=== PATIENT | female | born 1940 | race Caucasian/White ===

== ENCOUNTER → 2022-03-15 14:59 | Outpatient (BNVA) | payer MEDICARE, SELFPAY | PROVIDERS: PCP Internal Medicine; Visit Provider Internal Medicine | DX: J44.1 Chronic obstructive pulmonary disease with (acute) exacerbation (principal); Z79.899 Other long term (current) drug therapy | CPT/HCPCS: 99212 ==

== ENCOUNTER → 2023-01-28 10:31 | Outpatient (BNVA) | payer MEDICARE, SELFPAY | PROVIDERS: PCP Internal Medicine; Visit Provider Internal Medicine | DX: J44.9 Chronic obstructive pulmonary disease, unspecified (principal); J30.9 Allergic rhinitis, unspecified | CPT/HCPCS: 99212 ==

== ENCOUNTER 2023-07-30 10:54 | Outpatient (REF) | payer MEDICARE, SELFPAY | END 2023-07-30 10:55 | disposition home or self-care (01) | LOC: HO.HOSX 10:54 | PROVIDERS: Visit Provider Orthopaedic Surgery | DX: Z13.89 Encounter for screening for other disorder (principal) ==

== ENCOUNTER 2023-08-08 12:08 | Outpatient (REF) | payer MEDICARE, SELFPAY ==
--- NOTE | ~2023-08-08 | XR_ITS ---
EXAMINATION: XR KNEE, LEFT CLINICAL INFORMATION: Pain. COMPARISON: None available. TECHNIQUE: Frontal, lateral and axial views of the left knee are submitted. FINDINGS: Bony alignment and mineralization are normal. There is moderately severe asymmetric narrowing of the medial joint space compartment, and the lateral and patellofemoral joint space compartments are well-maintained. There is a secondary mild varus configuration. There is peripheral osteophyte formation of the medial and patellofemoral compartments. There is chondrocalcinosis. No fracture or dislocation is seen. There is a small joint effusion. No foreign body is seen. There is mild femoral and infrapopliteal atherosclerotic calcification. XR/XR knee LT 3V IMPRESSION: 1. There is tricompartment osteoarthritic change of the left knee, most pronounced of the medial joint space compartment, where it is moderately severe. 2. There is a secondary mild varus configuration. 3. There is chondrocalcinosis, which can be associated with CPPD. 4. There is a small left knee joint effusion.
== END 2023-08-08 12:09 | disposition home or self-care (01) ==
LOC: HO.HOSX 12:08
PROVIDERS: Visit Provider Orthopaedic Surgery
DX: M17.12 Unilateral primary osteoarthritis, left knee (principal); M25.561 Pain in right knee; Z79.899 Other long term (current) drug therapy
CPT/HCPCS: 20610; 73562; 99202; J3301

== ENCOUNTER 2023-08-08 14:57 | Outpatient (AMB) | payer MEDICARE, SELFPAY ==
--- NOTE | 2023-08-08 15:08 | MHC.OFFVIS ---
Intake Intake Visit Reasons: [employer]- Left knee pain Intake Note: Pt presents to the office today for a new patient visit for left knee pain. Pt is a previous pt of Dr. Parker. Pt state her knee pain started years ago. Pt states she has had cortisone injections in the past. Pt states she has had a cortisone injection with the past year.Pt states the injections help. She states the pain is back after falling about a month ago. pt states she had arthroscopic surgery on her left knee about 20 years ago. Pt denies any previous PT on her left knee. The patient has tried Tylenol and anti-inflammatory medicines which gave her minimal relief. She wishes to hold off on surgery for as long as possible. Allergies iodine Allergy (Severe, Verified 08/08/23 15:16) Anaphylaxis carli dressing Allergy (Severe, Uncoded 08/08/23 15:16) Anaphylaxis shellfish Allergy (Severe, Uncoded 08/08/23 15:16) Anaphylaxis Medication List - Last Reconciled 08/09/23 by Robert Parker MD albuterol sulfate 90 mcg/actuation 2 puffs inhalation Q4-6H PRN 30 days aspirin 81 mg PO DAILY fluticasone furoate-vilanterol 200-25 mcg/dose (Breo Ellipta) 1 inh inhalation DAILY mecobalamin (vitamin B12) 1,000 mcg sublingual BEDTIME metoprolol tartrate 25 mg PO DAILY omeprazole 40 mg PO DAILY PFSH Medical History (Updated 08/09/23 @ 12:10 by Robert Parker MD) Allergic rhinitis Asthma-COPD overlap syndrome Surgical History (Updated 08/08/23 @ 15:31 by Caitlyn Thornton MA) History of right hip replacement History of left hip replacement Hx of fusion of cervical spine Hx of cataract surgery History of back surgery Hx of arthroscopy of left knee History of carpal tunnel surgery Hx of hysterectomy Social History Household Members: Children Housing: House Alcohol intake: current Alcohol intake frequency: holidays/special occasions only Patient Tobacco Use Status: Former Tobacco user Current occupational status: retired Current occupation: right hand dominant Physical Exam Const Other: Well-nourished well-developed very friendly female awake alert and oriented x3 in no acute distress Extrem Other: Bilateral lower extremity examination shows good capillary refill, no skin lesions noted, normal sensation light touch Left knee examination shows palpable crepitus with range of motion, pain with range of motion, range of motion from -3 degrees to 115 degrees, no instability Office Procedures Joint Injection/Drain Joint Injection/Drain Primary Site: left knee Prep: site was prepped using aseptic technique Injected: 40 mg of, Kenalog and 1% plain lidocaine Procedure: The patient tolerated the procedure well Coding - Large joint Procedure code (CPT) selection complete Results Reviewed Results Reviewed: 08/08/23 15:38 Lidocaine HCl 2 % MPF [Xylocaine 2 % MPF] 5 ml .ROUTE .STK-MED ONE 08/08/23 15:39 Triamcinolone Acetonide [Kenalog-40] 40 mg .ROUTE .STK-MED ONE X-rays of the patient's left knee show severe joint space narrowing, subchondral sclerosis, no acute bony abnormalities Assessment & Plan Assessment & Plan (1) Arthritis of left knee: Code(s): M17.12 - Unilateral primary osteoarthritis, left knee Plan Ms. Sadler presents with left knee pain due to degenerative joint disease. I had a lengthy discussion with the patient regarding the treatment options. She wishes to hold off on surgery for as long as possible. I agree with this plan. The risks and benefits of a left knee cortisone injection were discussed at length with the patient. The patient wished to proceed. She tolerated the injection well. She will continue with her activity modifications. She will follow up with me on an as-needed basis should her symptoms not plateau at an unacceptable level over the next few months. Feel free to call me at any time should questions regarding her orthopedic management arise. I spent 22 minutes in reviewing the patient's records and imaging studies, seeing the patient and documenting in the medical record. Orders: Orders AMB Joint Injection/Aspiration 08/08/23 M17.12 - Unilateral primary osteoarthritis, left knee XR knee RT 3V 07/30/23 M25.561 - Pain in right knee Coding Level of Care Code Est Pt Level 2 (01276) Diagnoses Arthritis of left knee M17.12 CPT Codes Coding - Large joint: 83934 - Large joint ([id number])
== END 2023-08-08 16:04 | disposition home or self-care (01) ==
PROVIDERS: PCP Internal Medicine; Visit Provider Orthopaedic Surgery
DX: M17.12 Unilateral primary osteoarthritis, left knee (principal)
CPT/HCPCS: 20610; 99204

== ENCOUNTER 2024-01-23 10:36 | Outpatient (AMB) | payer MEDICARE, SELFPAY ==
[2024-01-23 10:40] VITALS: BMI 30.1
--- NOTE | 2024-01-23 10:40 | A.OFFVIS_ITS ---
Vital Signs 01/23/24 10:40 Height 5 ft Weight 154 lb BMI 30.1 Intake Visit Reasons: Left knee pain Intake Note: Kavitha is a 83 year old female who presents for a follow up of Left knee pain. Her last injection was the Left knee on 08/08/2023 and it gave her good relief. Her left knee pain has returned. She describes her pain as sharp in nature. She has done physical therapy exercises which aggravated her pain. She has also tried Tylenol and anti-inflammatory medicines which gave her minimal relief. She would like to hold off on surgery for as long as possible. Allergies iodine Allergy (Severe, Verified 01/23/24 11:16) Anaphylaxis carli dressing Allergy (Severe, Uncoded 08/08/23 15:16) Anaphylaxis shellfish Allergy (Severe, Uncoded 08/08/23 15:16) Anaphylaxis Medication List - Last Reconciled 01/23/24 by Robert Parker MD albuterol sulfate 90 mcg/actuation 2 puffs inhalation Q4-6H PRN 30 days aspirin 81 mg PO DAILY fluticasone furoate-vilanterol 200-25 mcg/dose (Breo Ellipta) 1 inh inhalation DAILY 30 days mecobalamin (vitamin B12) 1,000 mcg sublingual BEDTIME metoprolol tartrate 25 mg PO DAILY omeprazole 40 mg PO DAILY PFSH Medical History Allergic rhinitis Asthma-COPD overlap syndrome Surgical History History of right hip replacement History of left hip replacement Hx of fusion of cervical spine Hx of cataract surgery History of back surgery Hx of arthroscopy of left knee History of carpal tunnel surgery Hx of hysterectomy Social History Household Members: Children Housing: House Alcohol intake: current Alcohol intake frequency: holidays/special occasions only Patient Tobacco Use Status: Former Tobacco user Current occupational status: retired Current occupation: right hand dominant Physical Exam Vital Signs: BMI result Body Mass Index 30.1 Const Other: Well-nourished well-developed very friendly female awake alert and oriented x3 in no acute distress Extrem Other: Bilateral lower extremity examination shows good capillary refill, no skin lesions noted, normal sensation light touch Left knee examination shows a minimal effusion, palpable crepitus with range of motion, pain with range of motion, range of motion from -3 degrees to 115 degrees, no instability Office Procedures Joint Injection/Drain Joint Injection/Drain Primary Site: left knee Prep: site was prepped using aseptic technique Injected: 40 mg of, DepoMedrol and 1% plain lidocaine Procedure: The patient tolerated the procedure well Coding - Large joint Procedure code (CPT) selection complete Results Reviewed Results Reviewed: X-rays of the patient's left knee taken today show severe degenerative joint disease, subchondral sclerosis, joint space narrowing, no acute bony abnormalities Assessment & Plan Assessment & Plan (1) Left knee pain: Code(s): M25.562 - Pain in left knee (2) Arthritis of left knee: Code(s): M17.12 - Unilateral primary osteoarthritis, left knee Category: Medical Plan Ms. Sadler presents with left knee pain due to degenerative joint disease. I had a lengthy discussion with the patient regarding the treatment options. She wishes to hold off on total knee replacement surgery for as long as possible. I agree with this plan. The risks and benefits of a left knee cortisone injection were discussed at length with the patient. The patient wished to proceed. She tolerated the injection well. She will continue with her home exercise program. She will follow up with me on an as-needed basis should her symptoms not plateau at an unacceptable level over the next few months. Feel free to call me at any time should questions regarding her orthopedic management arise. I spent 22 minutes in reviewing the patient's records and imaging studies, seeing the patient and documenting in the medical record. Orders: Orders AMB Joint Injection/Aspiration Today M17.12 - Unilateral primary osteoarthriti s, left knee Coding Level of Care Code Est Pt Level 2 (01921) Diagnoses Left knee pain M25.562 Arthritis of left knee M17.12 CPT Codes Coding - Large joint: 60826 - Large joint ([id number])
== END 2024-01-23 11:47 | disposition home or self-care (01) ==
PROVIDERS: PCP Internal Medicine; Visit Provider Orthopaedic Surgery
DX: M25.562 Pain in left knee (principal); M17.12 Unilateral primary osteoarthritis, left knee
CPT/HCPCS: 20610; 99213

== ENCOUNTER 2024-01-23 10:36 | Outpatient (REF) | payer MEDICARE, SELFPAY ==
--- NOTE | ~2024-01-23 | XR_ITS ---
EXAMINATION: XR KNEE, LEFT CLINICAL INFORMATION: Pain in knee. COMPARISON: None available. TECHNIQUE: AP standing, sunrise and lateral views of the left knee. FINDINGS: LEFT KNEE: The bones are diffusely demineralized. No significant joint effusion. [id number]-rlnppf narrowing of the medial compartment. Chondrocalcinosis in the lateral compartment. Lateral compartment preserved. Small tricompartmental osteophytes. XR/XR knee LT 3V IMPRESSION: Tricompartmental degenerative changes most advanced in the medial compartment.
== END 2024-01-23 10:37 | disposition home or self-care (01) ==
LOC: HO.HOSX 10:36
PROVIDERS: PCP Internal Medicine; Visit Provider Orthopaedic Surgery
DX: M17.12 Unilateral primary osteoarthritis, left knee (principal)
CPT/HCPCS: 20610; 73562; 99212; J1010

== ENCOUNTER 2024-05-19 14:02 | Outpatient (AMB) | payer MEDICARE, MEDICAID, SELFPAY ==
--- NOTE | 2024-05-19 14:16 | MHC.OFFVIS ---
Intake Visit Reasons: Inj-left knee pain last injection 01/23/24 Intake Note: Kavitha is a 83 year old female who presents with complaints of left knee pain and swelling. The patient states that her pain has gotten worse over the last few years. She has had injections in the past which gave her temporary relief. She has tried Tylenol and anti-inflammatory medicines which gave her only mild relief. She would like to hold off on left total knee replacement surgery for as long as possible. Allergies iodine Allergy (Severe, Verified 05/19/24 14:16) Anaphylaxis carli dressing Allergy (Severe, Uncoded 08/08/23 15:16) Anaphylaxis shellfish Allergy (Severe, Uncoded 08/08/23 15:16) Anaphylaxis Medication List - Last Reconciled 05/19/24 by Robert Parker MD albuterol sulfate 90 mcg/actuation 2 puffs inhalation Q4-6H PRN 30 days aspirin 81 mg PO DAILY fluticasone furoate-vilanterol 200-25 mcg/dose (Breo Ellipta) 1 inh inhalation DAILY 30 days mecobalamin (vitamin B12) 1,000 mcg sublingual BEDTIME metoprolol tartrate 25 mg PO DAILY omeprazole 40 mg PO DAILY PFSH Medical History Allergic rhinitis Asthma-COPD overlap syndrome Surgical History History of right hip replacement History of left hip replacement Hx of fusion of cervical spine Hx of cataract surgery History of back surgery Hx of arthroscopy of left knee History of carpal tunnel surgery Hx of hysterectomy Social History Household Members: Children Housing: House Alcohol intake: current Alcohol intake frequency: holidays/special occasions only Patient Tobacco Use Status: Former Tobacco user Current occupational status: retired Current occupation: right hand dominant Physical Exam Const Other: Well-nourished well-developed very friendly female awake alert and oriented x3 in no acute distress Extrem Other: Bilateral lower extremity examination shows good capillary refill, no skin lesions noted, normal sensation light touch Left knee examination shows a mild effusion, palpable crepitus with range of motion, pain with range of motion, range of motion from -3 degrees to 115 degrees, no instability Office Procedures Joint Injection/Aspiration Joint Injection/Aspiration Primary Site: left knee Prep: site was prepped using aseptic technique Injected: 40 mg of, DepoMedrol and 1% plain lidocaine Procedure: The patient tolerated the procedure well Coding 03299 - Large joint Procedure code (CPT) selection complete Results Reviewed Results Reviewed: X-rays of the patient's left knee taken previously show joint space narrowing, subchondral sclerosis, osteophyte formation, no acute bony abnormalities Assessment & Plan Assessment & Plan (1) Arthritis of left knee: Code(s): M17.12 - Unilateral primary osteoarthritis, left knee Category: Medical Plan Ms. Sadler presents with left knee pain and swelling due to degenerative joint disease. I had a lengthy discussion with the patient regarding the treatment options. The risks and benefits of a left knee cortisone injection were discussed at length with the patient. The patient wished to proceed. Prior to the injection I aspirated 9 cc of clear fluid from her left knee. She tolerated the injection well. She will continue with her activity modifications. She will contact me prior to her follow-up appointment in 3 months should any questions or concerns arise. Feel free to call me at any time should questions regarding her orthopedic management arise. I spent 22 minutes in reviewing the patient's records and imaging studies, seeing the patient and documenting in the medical record. Orders: Orders AMB Joint Injection/Aspiration Today M17.12 - Unilateral primary osteoarthritis, left knee Coding Level of Care Code Est Pt Level 3 (60150) Complex EM visit Add On G2211 Diagnoses Arthritis of left knee M17.12 CPT Codes Coding - 18827 Large joint: 35741 - Large joint ([id number])
--- OUTSIDE RECORDS SUMMARY | 2024-05-20 08:15 | XMS_ITS ---
Author Organization [facility] Address [address] [place] [address] Care Team Providers Care Chief Dietitian Name Role Phone Santosh Rizo Primary Care Provider Apollo Stein [phone] REASON FOR VISIT Cancel Encounters Encounter Location Date Provider Diagnosis [facility] [address] [place] [address] 02/27/2023 Apollo Morse PLAN OF TREATMENT No Information
--- OUTSIDE RECORDS SUMMARY | 2024-05-20 08:15 | XMS_ITS ---
Author Organization [facility] Address [address] [facility] [place] [address] Care Team Providers Care Laborer Chemical Processing Name Role Phone Santosh Rizo Primary Care Provider Apollo Stein [phone] Encounters Encounter Location Date Provider [facility] [address] [place] [id number] 04/12/2023 Apollo Morse PLAN OF TREATMENT No Information
--- OUTSIDE RECORDS SUMMARY | 2024-05-20 08:16 | XMS_ITS | Patient Health Record ---
Author Organization [facility] Address [address] [place] [address] Care Team Providers Care Biztalk Developer Name Role Phone Santosh Rizo Primary Care Provider Apollo Stein Unavailable [phone] ALLERGIES Allergen (clinical drug ingredient) Drug/Non Drug Allergy documented on EMR Reaction Allergy Type Onset Date Status benzalkonium Merthiolate Unknown Drug Allergy Ac tive shrimp allergenic extract Shrimp (Diagnostic) anaphylaxis Drug Allergy Active Iodine Unknown Drug Allergy Active Shellfish (FN) Shellfish-derived Products anaphylaxis Drug Allergy Active REASON FOR REFERRAL No Information MEDICATIONS Medication SIG (Take, Route, Frequency, Duration) Notes Start Date End Date Status Albuterol Active Advil 200 MG 1 tablet with food o r milk as needed Orally Active St Sy Aspirin 81 MG 1 tablet Orally Once a day for 30 day(s) Active PreserVision AREDS A ctive Metoprolol Succinate 25 MG 1 capsule Orally Once a day for 30 day(s) Active Breo Ellipta Not-Ilir ing Vitamin E 45 MG 1 capsule Orally Onc e a day Active IMMUNIZATIONS Vaccine Route Administration Date Status Comme nts COVID-19 [employer]akan [employer] Rakan/Gris Unknown 01/18/2022 Administered 1st 02/24/2021 SOCIAL HISTORY Tobacco Use: Social History Observation Description Date Details (start date - stop date) Former Smoker NA - NA Sex Assigned At : Social History Observation Description Sex Assigned At Unknown Tobacco Use/Smoking Question Answer Notes Are you a: former smoker Additional Findings: Tobacco Non-User Current no n-smoker Alcohol Screen Question Answer Notes Did you have a drink containing alcohol in the p ast year? Yes Points 0 Interpretation Negative Tobacco use other than smoking: Question Answer Notes Are you an other tobacco user? No PROBLEMS Problem Type ICD Code Onset Dates Problem Status W/U Status Risk SNOMED Code Notes Problem Primary osteoarthrit is, right ankle and foot (M19.071) Active confirmed Localized, prim cassidy osteoarthritis of the ankle and/or foot (365178064) Problem Primary osteoarthrit is, left ankle and foot (M19.072) Active confirmed Localized, prim cassidy osteoarthritis of the ankle and/or foot (105829883) Problem Other hammer toe(s) (acquired), right foot (M20.41) Active confirmed Acquired hammer toe of right foot ([id number]) Problem Other hammer toe(s) (acquired), left foot (M20.42) Active confirmed Acquired hammer toe of left foot ([id number]) PLAN OF TREATMENT No Information Insurance Providers Payer Name Payer Address Payer Phone Subscriber Number Group Number Insured Name Patient Relationship to Insured Coverage Start Date Coverage End Date [employer] [address] [place] [address] [phone] [id number] [address] [place] [address] Self - patient is the insured MEDICAL (GENERAL) HISTORY Medical History History ICD Code asthma Cataracts Glaucoma Measles Mumps Chicken pox Bone implants/screws Joint implants/screws covid-19 Spinal stenosis Surgical History Surgery Date(Month/Year) hysterectomy finger surgery carpal tunnel surgery cyst removal bunionectomy back surgery cervical fusion achilles tendon repair arthroscopic knee surgery severed artery hip surgery 01/02/21 spine surgery 03/2021
--- OUTSIDE RECORDS SUMMARY | 2024-05-20 08:16 | XMS_ITS ---
Author Organization [facility] Address [address] [facility] [place] [address] Care Team Providers Care Motorbike Courier Name Role Phone Santosh Rizo Primary Care Provider Apollo Stein Unavailable [phone] ALLERGIES Allergen (clinical drug ingredient) Drug/Non Drug Allergy documented on EMR Reaction Allergy Type Onset Date Status benzalkonium Merthiolate Unknown Drug Allergy Ac tive shrimp allergenic extract Shrimp (Diagnostic) anaphylaxis Drug Allergy Active Iodine Unknown Drug Allergy Active Shellfish (FN) Shellfish-derived Products anaphylaxis Drug Allergy Active REASON FOR VISIT Painful nail(s) aggrevated by shoes and causing difficulty standing/walking., Ingrown nail(s) MEDICATIONS Medication SIG (Take, Route, Frequency, Duration) Notes Start Date End Date Status Albuterol Active St Sy Aspirin 81 MG 1 tablet Orally Once a day for 30 day(s) Active PreserVision AREDS A ctive Metoprolol Succinate 25 MG 1 capsule Orally Once a day for 30 day(s) Active Breo Ellipta Not-Ilir ing Advil 200 MG 1 tablet with food o r milk as needed Orally Active Vitamin E 45 MG 1 capsule Orally Onc e a day Active SOCIAL HISTORY Tobacco Use: Social History Observation [...] Are you an other tobacco user? No VITAL SIGNS Height 5 ft in 01/08/2023 Weight 148 lbs 01/08/2023 BMI 28.9 kg/m2 01/08/2023 Encounters Encounter Location Date Provider Diagnosis [facility] [address] [facility] [address] [place] [address] 01/08/2023 Apollo Morse Tinea unguium B35.1 ; Pain in right toe(s) M79.674 ; Pain in left toe(s) M79.675 ; Other hammer toe(s) (acquired), left foot M20.42 ; Other hammer toe(s) (acquired), right foot M20.41 ; Primary osteoarthritis, left ankle and foot M19.072 ; Primary osteoarthritis, right ankle and foot M19.071 and Ingrowing nail L60.0 ASSESSMENTS Encounter Date Diagnosis Assessment Notes Treatment Notes Treatment Clinical Notes 01/08/2023 Tinea unguium (ICD-10 - B35.1) 01/08/2023 Pain in right toe(s) (ICD-10 - M79.674) 01/08/2023 Pain in left toe(s) (ICD-10 - M79.675) 01/08/2023 Other hammer toe(s) (acquired), left foot (ICD-10 - M20.42) 01/08/2023 Other hammer toe(s) (acquired), right foot (ICD-10 - M20.41) 01/08/2023 Primary osteoarthritis, left ankle and foot (ICD-10 - M19.072) 01/08/2023 Primary osteoarthritis, right ankle and foot (ICD-10 - M19.071) 01/08/2023 Ingrowing nail (ICD-10 - L60.0) PLAN OF TREATMENT Next Appt Details Follow Up: prn, Reason: Procedure Notes * Category Sub-Category Detail Notes Nail Avulsion Procedure A fine sterile e levator was used to loosen the eponychium, nail bed, nail plate and groove. A sterile nail splitter was then used to longitudinally section the nail. This section was removed. No underlying bone was identified. Procedure was performed under. Bacitracin and sterile dressings applied, local wound care instructions were dispensed. Patient was informed of both conservative and future surgical procedures to prevent recurrence Anesthesia was accomplished TOP ICALLY with Lidocaine Hydrochloride Jelly 2% Location Medial nail border, TA Debride Nail 6-10 Nail debridement Nail debridem ent performed extensively to reduce/remove overall nail length and girth, subungual debris, and necrotic tissue, by manual and electrical means with use of a nail nipper and/or dremel, to more viable healthy nail plate or bed tissue 6-10. Silver nitrate used for any petechial bleeding as necessary. Patient chooses, no pharmaceutical tx (56902) Progress Notes * Examination Category Sub-Category Detail Notes Ingrown Nail INSPECTION: Reveals nail inc urvation, pain on palpation, groove hypertrophy, groove ischemia, Medial nail border, T5 ,, Medial nail border, TA Neurological SENSORY: Neurological exa m reveals intact sensorium, pain sensation normal, vibration sensation intact, pinprick sensation is normal in the lower extremities, Pt denies, anesthesia, burning, paresthesia, tingling, B/L BABINSKI REFLEX: absent Dermatologic SKIN FINDINGS: Skin exam reveal s normal texture, elasticity, and tugor. There are no masses. The interspaces are clear Orthopedic GAIT ABNORMALITY: pronated, abdu cted, B/L DIGITAL DEFORMITIES: Digital contracture , PIPJ, 2-5 B/L, incompl-reducable with WB, or to push-up test, no over, nor underlapping MUSCLE STRENGTH: 5/5 all groups in a symmetrical fashion , B/L General Examination GENERAL APPEARANCE: pleasant , alert, well nourished, well developed, well hydrated, with good attention to hygene/body habitus, and in no acute distress ORIENTED: person,place, and ti me Vascular DP PULSES: 2/4, B/L PT PULSES: 2/4, B/L CAPILLARY FILL TIME: 3 secs. per digit, B/L SKIN TEMPERTURE GRADIENT OF THE LOWER EXTERMITIES: warm to cool, proximal to distal, B/L HAIR GROWTH/TEXTURE/ELASTICITY/TURGOR: n ormal, B/L EDEMA: no edema, B/L TELANGECTASIA: absent VARICOSITIES: absent PIGMENTATION: normal, B/L Nails NAILS are: elongated,overgr own,dystrophic,greater than 3mm thick,discolored and friable with crumbly malodorous subungual debris, with pain on palpation, 1-4 B/L History and Physical Notes * HPI (History of Present Illness) Category Sub-Category Detail Notes Toe pain Nature: aching, stiffnes s, tenderness Location: 3rd toe, Left foot Duration: several years Onset/Cause: unknown Course: progressive Aggravated by: shoes, any pressure Treatments: change in shoes Severity/Quality: moderate Ingrown toenail Duration: several months Nature: tenderness Location: Great toe, Right iftikhar t Onset/Cause: unknown Course: intermittent Painful Nails Pt States Last PCP Visit: Date:: 022 Skin problems Nature: discolored Treatments: lamisil cream
== END 2024-05-19 14:44 | disposition home or self-care (01) ==
PROVIDERS: PCP Internal Medicine; Visit Provider Orthopaedic Surgery
DX: M17.12 Unilateral primary osteoarthritis, left knee (principal)
CPT/HCPCS: 20610; 99213

== ENCOUNTER → 2024-05-19 14:02 | Outpatient (BNVA) | payer MEDICARE, SELFPAY | PROVIDERS: PCP Internal Medicine; Visit Provider Orthopaedic Surgery | DX: M17.12 Unilateral primary osteoarthritis, left knee (principal) | CPT/HCPCS: 20610; 99212; J1010 ==

== ENCOUNTER 2025-06-01 09:12 | Outpatient (REF) | payer MEDICARE, MEDICAID, SELFPAY ==
--- NOTE | ~2025-06-01 | XR_ITS ---
CLINICAL HISTORY: M79.642 - Pain in left hand Radiographs of the left hand, 4 views Comparison: None available Findings: No fracture or dislocation. There is severe degenerative change of the 1st carpometacarpal joint and the triscaphe joint. Degenerative change is otherwise moderate. Soft tissue swelling. Impression: Moderate to severe degenerative change. This document has been electronically signed by: Latasha Mckeon MD on 06/02/2025 13:16:56
--- OUTSIDE RECORDS SUMMARY | 2025-06-03 09:44 | XMS_ITS | Patient Health Record ---
Author Organization [facility] Address [address] [place] [address] Care Team Providers Care Site Promotion Agent Name Role Phone Tiago Sorenson Jr Reason For Referral No Information Plan Of Treatment No Information
--- OUTSIDE RECORDS SUMMARY | 2025-06-03 09:44 | XMS_ITS | Patient Health Record ---
Author Organization [facility] Address [address] [facility] [place] [address] Care Team Providers Care Dividend Deposit Voucher Clerk Name Role Phone Santosh Rizo Primary Care Provider Apollo Stein Unavailable [phone] Allergies Allergen (clinical drug ingredient) Drug/Non Drug Allergy documented on EMR Reaction Allergy Type Onset Date Status Merthiolate Unknown Drug Allergy Activ e shrimp allergenic extract Shrimp (Diagnostic) anaphylaxis Drug Allergy Active Iodine Unknown Drug Allergy Active Shellfish (FN) Shellfish-derived Products anaphylaxis Drug Allergy Active Reason For Referral No Information Medications Medication SIG (Take, Route, Frequency, Duration) Notes Start Date End Date Status Albuterol Active Advil 200 MG 1 tablet with food o r milk as needed Orally Active St Sy Aspirin 81 MG 1 tablet Orally Once a day; Duration: 30 day(s) Active PreserVision AREDS A ctive Metoprolol Succinate 25 MG 1 capsule Orally Once a day; Duration: 30 day(s) Active Breo Ellipta Not-Ilir ing Vitamin E 45 MG 1 capsule Orally Onc e a day Active Immunizations Vaccine Route Administration Date Status Comme nts COVID-19 Rakan & Rakan/Gris Unknown 01/18/2022 Administered 1st 02/24/2021 Social History Tobacco Use: Social History Observation Description Date Details (start date - stop date) Former Smoker NA - NA Tobacco Use/Smoking Question Answer Notes Are you a: former smoker Additional Findings: Tobacco Non-User Current no n-smoker Alcohol Screen Question Answer Notes Did you have a drink containing alcohol in the p ast year? Yes Points 0 Interpretation Negative Tobacco use other than smoking: Question Answer Notes Are you an other tobacco user? No Problems Problem Type SNOMED Code ICD Code Onset Dates Problem Status W/U Status Risk Notes Problem Localized, primary osteoarthritis of the ankle and/or foot (659607484) Primary osteoarthrit is, right ankle and foot (M19.071) Active confirmed Problem Localized, primary osteoarthritis of the ankle and/or foot (973318433) Primary osteoarthrit is, left ankle and foot (M19.072) Active confirmed Problem Acquired hammer toe of right foot (2459518961904818) Other hammer toe(s) (acquired), right foot (M20.41) Active confirmed Problem Acquired hammer toe of left foot (8551705119593832) Other hammer toe(s) (acquired), left foot (M20.42) Active confirmed Plan Of Treatment No Information Insurance Providers Payer Name Payer Address Payer Phone Subscriber Number Group Number Insured Name Patient Relationship to Insured Coverage Start Date Coverage End Date [employer] [place] [employer] Advantage [facility] [address] [place] [address] [id number] [address] [place] [address] Alla hooperaine Self - patient is the insured Medical (General) History Medical History History ICD Code asthma Cataracts Glaucoma Measles Mumps Chicken pox Bone implants/screws Joint implants/screws covid-19 Spinal stenosis Surgical History Surgery Date(Month/Year) hysterectomy finger surgery carpal tunnel surgery cyst removal bunionectomy back surgery cervical fusion achilles tendon repair arthroscopic knee surgery severed artery hip surgery 01/02/21 spine surgery 03/2021
--- OUTSIDE RECORDS SUMMARY | 2025-06-03 09:44 | XMS_ITS | Encounter Summary ---
Author Organization [facility] Address [address] [facility] [address] [place] [address] Phone Care Team Providers Care Fitness Specialist Name Role Phone Santosh Rizo MD Primary Care Provider [phone] Kavya Cantu MBBS Unavailable [phone] Encounter Details Date Type Department Care Team (Late st Contact Info) Description 01/21/2025 Telephone [facility] [address] [place], [place] [id number] Santosh Rizo MD [address] [facility], [address] [place] [address] [email or web address] Social History Tobacco Use Types Packs/Day Years [...] documented as of this encounter Care Teams Fitness Specialist Relationship Specialty Start Date End Date Santosh Rizo MD [address] [place] [address], [address] [place] [address] [email or web address] PCP - General Internal Medicine 10/02/21 Kavya Cantu MBBS [address] [place] [address], [address] [place] [address] [email or web address] Medical Oncology 03/13/24 documented as of this encounter Additional Source Comments The information contained in this document represents components of the legal health record. It is not the complete legal health record.[facility]
--- OUTSIDE RECORDS SUMMARY | 2025-06-03 09:44 | XMS_ITS | Clinical Summary ---
Author Organization [facility] Address [address] [address] Phone Care Team Providers Care Compacting Machine Operator/Tender Name Role Phone Santosh Rizo MD Primary Care Provider [phone] Kavya Cantu MBBS Unavailable [phone] Allergies Active Allergy Reactions Criticality Noted Date [...] 5,000 unit capsule daily. 4 Active vitamins A,C,B-fkly-sqpgu r (PRESERVISION AREDS) 4,296 mcg-226 mg-90 mg [...] with NSAID use. Refer to ENT in [place] for possible cautery Macrocytosis without anemia 04/21/2024 [...] (03/03/2024 2:45 PM EDT): Getting LALA in [place] Assessment & Plan (11/15/2023 11:21 AM EST): Now benefiting from treatments from pain management at [facility]. First LALA September 2023, repeat planned [...] evaluation which came back unremarkable MGUS -IgG [place] Some pancreatic abnormality - MRCP was unremarkable [...] with asthma 11/28/2018 Overview (01/02/2022): Follows with media marketing director Dr Mata December 2021: Cont with Breo, [...] Type Department Care Team Description 05/26/2025 Telephone [facility] [address] [place] [address] Santosh Rizo MD No Show (Same day cancel) 05/25/2025 Telephone [facility] [address] [place] [address] Santosh Rizo MD Triage (red-nurse call back, dizzy, light headed) 05/14/2025 3:15 PM EDT Telemedicine - audio only [address] [place] [address] Santosh Rizo MD Bladder instability (Primary Dx) 05/13/[address] [place] [address] Santosh Rizo MD Urine issues 04/22/[address] [place] [address] Santosh Rizo MD Medication Refill 03/20/[address] [place] [address] Santosh Rizo MD Medication Refill from Last [...] Insurance [employer] [place] [employer] HMO REPLACEMENT [facility] FULL [place]ICARE PART A [place] [id number] [facility] [employer] [place] MED[employer] HMO REPLACEMENT [facility] FULL MEDICARE PART A [place] [id number] [facility] [employer] [place] MED[employer] HMO REPLACEMENT [facility] NET FULL MEDICARE PART A & B [facility] [employer] [place] [employer] HMO REPLACEMENT [facility] FULL MEDICARE PART A & [facility] [place] [facility] RE[facility] FULL MEDICARE PART A & B [facility] [employer] [place] [employer] HMO REPLACEMENT [facility] FULL MEDICARE PART A & B Member Subscriber Plan / Payer (Ef fective 2007-Present) Name:Kavitha Sadler Member ID:[id number] Relation to Subscriber:Self Name:Kavitha Sadler Subscriber ID:[id number] Payer ID:[id number] Group ID:Not on file Type:Medicare Address: [facility] [employer] [facility] [address] [place] [address] [place] [phone] [facility] Care Teams Compacting Machine Operator/Tender Relationship Specialty Start Date End Date Santosh Rizo MD [address] [place] [address], [address] [place] [address] [email or web address] PCP - General Internal Medicine 10/02/21 Kavya Cantu MBBS [address] [place] [address], [address] [place] [address] [email or web address] Medical Oncology 03/13/24 Additional Source Comments The information contained in this document represents components of the legal health record. It is not the complete legal health record.[facility]
--- OUTSIDE RECORDS SUMMARY | 2025-06-03 09:44 | XMS_ITS | Encounter Summary ---
Author Organization [facility] Address [address] [facility] [address] [place] [address] Phone Care Team Providers Care Bus And Trolley Inspecting Dispatcher Name Role Phone Santosh Rizo MD Primary Care Provider [phone] Braulio Cobb MD Unavailable Kavya Cantu MB Unavailable [phone] Encounter Details Date Type Department Care Team (Late st Contact Info) Description 05/27/2023 Procedure Pass [facility], [address] [address] Social History Tobacco Use Types Packs/Day Years [...] high school, GED, job training, learning the Greek language, technical skills, or developing parenting skills)? [...] documented as of this encounter Care Teams Bus And Trolley Inspecting Dispatcher Relationship Specialty Start Date End Date Santosh Rizo MD [address] [place] [address], [address] [place] [id number] [email or web address] PCP - General Internal Medicine 10/02/21 Braulio Cobb MD [address] [address] [email or web address] Primary Oncologist Hematology and Oncology 03/22/2302/28 Kavya Cantu MBBS [address] [address] [email or web address] Medical Oncology 03/13/24 documented as of this encounter Additional Source Comments The information contained in this document represents components of the legal health record. It is not the complete legal health record.[facility]
--- OUTSIDE RECORDS SUMMARY | 2025-06-03 09:44 | XMS_ITS | Encounter Summary ---
Author Organization [facility] Address [address] [facility] [address] [place] [address] Phone Care Team Providers Care Mobile Engineer Name Role Phone Santosh Rizo MD Primary Care Provider [phone] Kavya Cantu MBBS Unavailable [phone] Reason for Visit * Reason Onset Date Comments No Show 05/26/2025 Same day cancel Encounter Details Date Type Department Care Team (Late st Contact Info) Description 05/26/2025 Telephone [facility] [address] [place] [address] Santosh Rizo MD [address] [facility] [place] [address] [email or web address] No Show (Same day cancel) Social History [...] can cancel appointments anytime through your Patient [place]. We appreciate your understanding. Required Scripting for [...] can cancel appointments anytime through your Patient [place]. documented in this encounter Plan of Treatment Not on file documented as of this encounter Visit Diagnoses Not on filedocumented in this encounter Additional Health Concerns Assessment Noted Time PHQ-2 Depression Total Score: 0 03/18/20 23 11:40 AM EDT documented as of this encounter Care Teams Mobile Engineer Relationship Specialty Start Date End Date Santosh Rizo MD [address] [place] [address], [address] [place] [address] [email or web address] PCP - General Internal Medicine 10/02/21 Kavya Cantu MBBS [address] [place] [address], [address] [place] [address] [email or web address] Medical Oncology 03/13/24 documented as of this encounter Additional Source Comments The information contained in this document represents components of the legal health record. It is not the complete legal health record.[facility]
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
--- OUTSIDE RECORDS SUMMARY | 2025-06-03 09:44 | XMS_ITS | Clinical Summary ---
Author Organization [facility] Address [address] [place] [address] Care Team Providers Care Administrative Support Specialist Name Role Phone Santosh Rizo MD Primary Care Provider [phone] Allergies Active Allergy Reactions Criticality Noted Date [...] Patient not taking.Reason: Other, Reported on 10/12/2021 Shnwdcyolt-NRFC-Sb ffeine 50-300-40 MG CAPS TAKE 1 CAPSULE [...] age to complete this topic Care Teams Administrative Support Specialist Relationship Specialty Start Date End Date Santosh Rizo MD [address] [place] [phone] PCP - General Internal Medicine 08/07/21
== END 2025-06-01 09:13 | disposition home or self-care (01) ==
LOC: HO.HOSX 09:12
PROVIDERS: Visit Provider Orthopaedic Surgery
DX: M18.12 Unilateral primary osteoarthritis of first carpometacarpal joint, left hand (principal)
CPT/HCPCS: 20600; 73130; 99202; J1100; J2003

== ENCOUNTER 2025-06-01 10:14 | Outpatient (AMB) | payer MEDICARE, MEDICAID, SELFPAY ==
--- NOTE | 2025-06-01 10:55 | A.OFFVIS_ITS ---
Vital Signs 06/01/25 10:58 Height 5 ft Weight 145 lb BMI 28.3 Intake Visit Reasons: New prob- Left hand pain Intake Note: Kavitha is a 85 year old right hand dominant woman who presents today for a new problem visit with complaints of left hand pain. No recent injury. States she is having pain and discomfort when using her walker. States pain is worse once pressure is applied. Pain is mainly on her wrist and around her thumb area. States pain radiates to her arm at time. She has numbness tingling only when using her walker. Denies locking of fingers. Hx of cyst removal in left hand. Allergies iodine Allergy (Severe, Verified 06/01/25 11:03) Anaphylaxis carli dressing Allergy (Severe, Uncoded 06/01/25 11:03) Anaphylaxis shellfish Allergy (Severe, Uncoded 06/01/25 11:03) Anaphylaxis HPI HPI New prob- Left hand pain: Details: Kavitha is an 85 year old right hand dominant woman who presents with complaints of left wrist/hand pain. She complains of pain in her left wrist & the base of her thumb primarily when applying pressure. She says most of her pain occurs when she is using her walker. She denies any locking or catching. She denies any prior treatment options. She says she had a left wrist cyst removed several years ago, and she is unsure if this may be returning & causing her pain. She says she uses a walker for ambulation after a recent Hx of a broken femur. [facility] Medical History Allergic rhinitis Asthma-COPD overlap syndrome Surgical History History of right hip replacement History of left hip replacement Hx of fusion of cervical spine Hx of cataract surgery History of back surgery Hx of arthroscopy of left knee History of carpal tunnel surgery Hx of hysterectomy Social History Household Members: Children Housing: House Alcohol intake: current Alcohol intake frequency: holidays/special occasions only Patient Tobacco Use Status: Former Tobacco user Current occupational status: retired Current occupation: right hand dominant Review of Systems Const All systems reviewed & are unremarkable except as noted in HPI and below Physical Exam Vital Signs: BMI result Body Mass Index 28.3 Const General: cooperative, healthy appearing and no acute distress Orientation/consciousness: patient oriented x3 HEENT Head: Yes normocephalic and Yes atraumatic Eyes EOM: EOMs intact bilaterally Resp Effort & Inspection: normal respiratory effort and able to speak in complete sentences Cardio Jugular venous distension: no JVD Skin General skin exam: turgor normal Rashes: no rashes Neuro General: patient oriented x3 Extrem Other: Evaluation of Left Upper Extremity: The patient is alert, oriented, and in no acute distress Neuro: Median, Ulnar, Radial nerves motor and sensory intact to the tips of all digits Vascular: Cap refill brisk ROM: She can make a fist and extend all her digits No locking or catching Skin: No lacerations or abrasions. General: No Ecchymosis. No Erythema or evidence of infection. ADduction deformity, somewhat reducible in clinic Pos shoulder sign Radiographs: 3 views of the left hand were taken and viewed by me today in clinic. They show no fractures or dislocations. She has some mid-carpal arthritis, severe basal joint & STT joint arthritis with joint space narrowing, osteophyte formation, and subchondral sclerosis Psych Appearance: grossly normal Affect: normal affect Attitude: cooperative Office Procedures AMB Fracture Care Details: No fracture, injection Fracture Billing Code: Fracture Billing Code Assessment & Plan Assessment & Plan (1) Arthritis of carpometacarpal (CMC) joint of left thumb: Code(s): M18.12 - Unilateral primary osteoarthritis of first carpometacarpal joint, left hand Category: Medical Plan Assessment & Plan: 1. Left Basal joint arthritis 2. Left STT joint arthritis I educated her about these conditions I discussed non-operative treatment options The patient would like to proceed with an injection I discussed activity modification, they should limit or avoid any heavy or repetitive pinching or gripping activities She was fitted for a comfort cool brace to wear with daily activity She should work on ROM exercises, and avoid any gripping or strengthening activities I discussed the use of assistive devices for daily activity Injection #1: The risks and benefits of a steroid injection including but not limited to risk of damage to blood vessels, nerve, tendon, infection, skin bleaching, persistent or worsening pain, and failure to improve symptoms were discussed with the patient and they wish to proceed with the steroid injection. Once consent was obtained the skin over the dorsum of the Left basal joint was sterilely prepped. The joint was then injected with a combination of 1 mL of dexamethasone (4mg/ml) and 1% plain Lidocaine. The patient appears to have tolerated the procedure well and with no complications. She had good early relief before leaving clinic today. She knows that they may not have another steroid injection into this joint for least 4 months. She will follow up prn Scribed for Karla Gamboa MD by Jacob Jama, internist medical doctor md, on 06/01/25 at 11:30 AM, EST. Orders: Orders XR hand LT min 3V Today M79.642 - Pain in left hand Coding Level of Care Code New Pt Level 3 (33167) Diagnoses Arthritis of carpometacarpal (CMC) joint of left thumb M18.12 CPT Codes Fracture Care - Fracture Billing Code: Fracture Billing Code ([id number])
[2025-06-01 10:58] VITALS: BMI 28.3
--- OUTSIDE RECORDS SUMMARY | 2025-06-01 11:46 | XMS_ITS | Encounter Summary ---
Author Organization [facility] Address [address] [place] [address] Phone Care Team Providers Care Airport Control Operator Name Role Phone Santosh Rizo MD Primary Care Provider [phone] Kavya Cantu MBBS Unavailable Reason for Visit * Reason Onset Date Comments No Show 05/26/2025 Same day cancel Encounter Details Date Type Department Care Team (Late st Contact Info) Description 05/26/2025 Telephone [facility] [address] [place] [address] Santosh Rizo MD [address] [place] [address] [email or web address] No Show (Same day cancel) Social History Tobacco Use Types Packs/Day Years Used Date Smoking Tobacco: Former Cigarettes 0 10/02/1968 - 10/02/2007 Smokeless Tobacco: Never Alcohol Use Standard Drinks/Week Comments Yes 0 (1 standard drink = 0.6 oz pur e alcohol) Glass of wine nightly Child or Family Care Answer Date Record ed Do you have problems with on e of the following making it difficult for you to work, study, or receive health care? No 10/02/2021 Education Answer Date Recorded Are you interested in more education? Not on lito e 10/03/2023 Are you concerned about learning? Not on file 10/03/2023 No 10/03/2023 No 10/03/2023 Food Answer Date Recorded Within the past 6 months we worried whether our food would run out before we got money to buy more. Sometimes True 022 Within the past 6 months the food we bought just didn't last and we didn't have enough money to get more. Sometimes True 11/2021 Residential Stability Answer Date Recor ded What is your housing situation today? I have andrés gallego 10/02/2021 How many times have you move d in the past 12 months? Zero (I did not move) 10/02/2021 Paying for Meds Answer Date Recorded Do you have trouble paying for medicines? No 10/02/2021 Paying Utility Bills Answer Date Record ed Do you have trouble paying your heating or elect ricity bill? No 10/02/2021 Transportation Answer Date Recorded Has the lack of transportati on kept you from medical appointments or from getting medications? No 10/02/2021 Unemployment Answer Date Recorded Are you currently unemployed or working on a part-time or temporary basis, and looking for work? No 10/02/2021 Digital Access Answer Date Recorded No 02/22/2023 No 02/22/2023 Reliable internet access at home? Not on file 02/22/2023 Device with a working camera? Not on file Intimate Partner Violence Answer Date R ecorded Denied Basic Needs Not on file 03/18/2023 In the past 12 months have y ou been in a relationship with a person who hurts, threatens, or tries to control you? No 03/18/2023 Worried food would run out Not on file 03/18 In the past 12 months have y ou been in a relationship with a person who hurts, threatens, or tries to control you? No 03/18/2023 Comments Unknown Sex and Gender Information Value Date Recorded Sex Assigned at Not on file Legal Sex Female 1:45 PM EDT Gender Identity Not on file Sexual Orientation Not on file documented as of this encounter Progress Notes * Dorothea Anderson - 05/26/2025 12:28 PM EDT [facility] PEN Top Smart Phrases: 24-48 Hour No-Show Notice If caller not the patient: Name: Relationship: Cancel Appt Visit Type: SICK VISIT Cancelation Reason: Lack of Transportation Cancelation Detail: can't get ride Was Appt Reschedule: No Why Reschedule was not performed (W/Detail) n/a Awareness: I have reiterated our late cancellation policy to the caller. Agent Action: > Reason for Call: NO SHOW > Comment: Enter Cancel Appt date > Route: Route to FD if the No-Show is a future date. > Route: OXBOW SDV and Sick Visit No-Show, route to RN for rescheduling. Do not Call Center: Ensure the appt has been cancel from the future tab > Reiterate Scripting: Provide our late cancellation policy to the caller Required Scripting for Existing Patients: Thank you for notifying us about the cancellation. We will inform the provider. As a reminder, our policy requires at least 24 hours' notice for cancellations, as providers reserve time for your appointment, and short notice often makes it difficult to reschedule. You can cancel appointments anytime through your [facility]. We appreciate your understanding. Required Scripting for New Patients: Thank you for notifying us about the cancellation. We will inform the provider. Please be aware of our 48-hour cancellation policy for new patients. If you need to cancel or reschedule, we ask for at least 48 hours' notice. If you miss an appointment or cancel without sufficient notice, it will be marked as a No-Show appointment. We allow for two unforeseen circumstances under this policy. This policy ensures that our providers can manage their schedules effectively. Additionally, you can cancel appointments anytime through your [facility]. documented in this encounter Plan of Treatment Not on file documented as of this encounter Visit Diagnoses Not on filedocumented in this encounter Additional Health Concerns Assessment Noted Time PHQ-2 Depression Total Score: 0 03/18/20 23 11:40 AM EDT documented as of this encounter Care Teams Airport Control Operator Relationship Specialty Start Date End Date Santosh Rizo MD [address] [place] [address], [address] [place] [address] [email or web address] PCP - General Internal Medicine 10/02/21 Kavya Cantu MBBS [address] [place] [address], [address] [place] [address] [email or web address] Medical Oncology 03/13/24 documented as of this encounter Additional Source Comments The information contained in this document represents components of the legal health record. It is not the complete legal health record.[facility]
--- OUTSIDE RECORDS SUMMARY | 2025-06-01 11:46 | XMS_ITS | Encounter Summary ---
Author Organization [facility] Address [address] [place] [address] Phone Care Team Providers Care Motor Vehicle Representative Name Role Phone Santosh Rizo MD Primary Care Provider [phone] Kavya Cantu MBBS Unavailable [phone] Encounter Details Date Type Department Care Team (Late st Contact Info) Description 01/21/2025 Telephone [facility] [address] [place], [place] [id number] Santosh Rizo MD [address] [facility] [place] [address] [email or web address] Social History Tobacco Use Types Packs/Day Years [...] on file documented as of this encounter Plan of Treatment Not on file documented as of this encounter Visit Diagnoses Not on filedocumented in this encounter Additional Health Concerns Assessment Noted Time PHQ-2 Depression Total Score: 0 03/18/20 23 11:40 AM EDT documented as of this encounter Care Teams Motor Vehicle Representative Relationship Specialty Start Date End Date Santosh Rizo MD [address] [place] [address], [address] [place] [address] [email or web address] PCP - General Internal Medicine 10/02/21 Kavya Cantu MBBS [address] [place] [address], [address] [place] [address] [email or web address] Medical Oncology 03/13/24 documented as of this encounter Additional Source Comments The information contained in this document represents components of the legal health record. It is not the complete legal health record.[facility]
--- OUTSIDE RECORDS SUMMARY | 2025-06-01 11:46 | XMS_ITS | Encounter Summary ---
Author Organization [facility] Address [address] [facility] [address] [place] [address] Phone Care Team Providers Care Glass Cleaning Machine Tender Name Role Phone Santosh Rizo MD Primary Care Provider [phone] Braulio Cobb MD Unavailable Kavya Cantu MB Unavailable [phone] Encounter Details Date Type Department Care Team (Late st Contact Info) Description 05/27/2023 Procedure Pass [facility], [address] [address] Social History Tobacco Use Types Packs/Day Years [...] Answer Date Recorded Are you interested in help w ith more adult education (for example, completing high school, GED, job training, learning the [place] language, technical skills, or developing parenting skills)? No 10/02/2021 Food Answer Date Recorded Within the past [...] your housing situation today? I have andrés sing 10/02/2021 How many times have you move [...] filedocumented in this encounter Additional Health Concerns Infection Onset Date Last Indicated Resolved Time CoV-Risk 11/15/2023 11/15/2023 11/26/2023 1:23 AM EST Assessment Noted Time PHQ-2 Depression Total Score: 0 03/18/20 23 11:40 AM EDT documented as of this encounter Care Teams Glass Cleaning Machine Tender Relationship Specialty Start Date End Date Santosh Rizo MD [address] [place] [address], [address] [place] [id number] [email or web address] PCP - General Internal Medicine 10/02/21 Braulio Cobb MD [address] [address] [email or web address] Primary Oncologist Hematology and Oncology 03/22/2302/28 Kavya Cantu MBBS [address] [address] [email or web address] Medical Oncology 03/13/24 documented as of this encounter Additional Source Comments The information contained in this document represents components of the legal health record. It is not the complete legal health record.[facility]
--- OUTSIDE RECORDS SUMMARY | 2025-06-01 11:46 | XMS_ITS | Clinical Summary ---
Author Organization [facility] Address [address] [place] [address] Care Team Providers Care Design Director Name Role Phone Santosh Rizo MD Primary Care Provider [phone] Allergies Active Allergy Reactions Criticality Noted Date Comments Iodine Anaphylaxis High 12/12/2019 Other 12/25/2018 No reaction documented. Penicillins 02/10/2021 Shellfish Allergy 12/25/2018 Acute allergic reaction Sulfa Antibiotics 02/10/2021 Medications Medication Sig Dispensed Refills Start Date End Date Status baclofen (LIORESAL) 10 MG tablet TAKE 1 TABLET BY MOUTH DAILY 5 11/09/2017 Active metoprolol succinate (TOPROL-XL) 24 hr tablet 25 mg TAKE 1 TABLET BY MOUTH EVERY DAY 3 11/04/2017 Active traMADol (ULTRAM) 50 MG tablet TAKE 1 TABLET BY MOUTH EVERY 6 HOURS NEEDED FOR SEVERE PAIN 5 12/16/2017 Active diphenoxylate-atro pine (LOMOTIL) 2.5-0.025 MG per tablet Take 1 tablet by mouth every 6 (six) hours as needed. 1 01/17/2018 Active HYDROcodone-acetam inophen (NORCO) 7.5-325 MG per tablet TAKE 1 TABLET BY MOUTH EVERY 6 HOURS NEEDED FOR SEVERE PAIN 0 04/11/2018 Active albuterol (PROAIR HFA) 108 (90 Base) MCG/ACT inhaler Inhale 2 puffs into the lungs. 0 12/22/2019 Active Aspirin Buf,CaCarb-MgCarb- MgO, 81 MG TABS Take 81 mg by mouth. 0 Active Vitamin E 400 units TABS Take 400 Units by mouth. 0 Active BREO ELLIPTA 200-25 MCG/INH AEPB TAKE 1 PUFF BY MOUTH EVERY DAY 0 11/01/2020 Active amoxicillin (AMOXIL) 500 MG tablet Take 4 tabs 1 hour prior to dental appointment 20 tablet 3 02/10/2021 Active clindamycin (CLEOCIN) 300 MG capsule Take 2 capsules 1 hour prior to dental appointment 10 capsule 2 02/10/2021 Active oxyCODONE (ROXICODONE) 5 MG immediate release tablet Take 1 tab every 12 hours as needed for pain 40 tablet 0 02/28/2021 Active Additional Information Patient not taking.Reason: Other, Reported on 10/12/2021 Tfunxwzmgt-RBLA-Oz ffeine 50-300-40 MG CAPS TAKE 1 CAPSULE BY MOUTH EVERY 6 HOURS NEEDED FOR HEADACHE. 0 04/30/2021 Active tiZANidine (ZANAFLEX) 4 MG tablet 0 05/11/2021 Active metoprolol tartrate (LOPRESSOR) 25 MG tablet Take 1 tablet by mouth daily. 0 09/18/2021 Active EPINEPHrine 0.3 MG/0.3ML SOAJ Inject 0.3 mg into the muscle. 0 Active Cyanocobalamin 1000 MCG CAPS Take 1,000 mcg by mouth. 0 04/21/2020 Active aspirin 81 MG EC tablet Take 81 mg by mouth. 0 Active Active Problems Problem Noted Date Diagnosed Date Arthritis of right hip 07/28/2020 Primary osteoarthritis of right knee 01/20/2019 Postop check 06/26/2018 Effusion of right knee 04/25/2018 Chronic pain of right knee 04/15/2018 Family History Medical History Relation Name Comments Arthritis Mother Cancer Mother Heart disease Mother Arthritis Sister Cancer Sister Diabetes Sister Hyperlipidemia Sister Hypertension Sister Relation Name Status Comments Mother Sister Social History Tobacco Use Types Packs/Day Years Used Date Smoking Tobacco: Former Cigarettes Q uit: 1997 Sex and Gender Information Value Date Recorded Sex Assigned at Not on file Gender Identity Not on file Sexual Orientation Not on file Job Start Date Occupation Industry Not on file Not on file Not on file Plan of Treatment Health Maintenance Due Date Last Done Comments COVID-19 Vaccine (#1) 1942 Depression Screening 1954 Preventative Health Evaluation 1960 DTap / Tdap / Td (1 - Tdap) 1961 Shingrix-Zoster Vaccine (1 of 2) 1992 Fall Risk Assessment 2007 Osteoporosis Screening (DEXA Scan) 2007 Pneumococcal Vaccine (1 of 1 - PCV) 2007 RSV Adult > 60+ Yrs or (1 - 1-dose 75+ series) 2017 Influenza Vaccine (#1) 2025 0, 06/09/2019, 06/09/2019, Additional history exists Hepatitis B Vaccines Aged Out No long er eligible based on patient's age to complete this topic RSV Ped < 20 months Aged Out No longe r eligible based on patient's age to complete this topic Care Teams Design Director Relationship Specialty Start Date End Date Santosh Rizo MD [address] [place] [id number] PCP - General Internal Medicine 08/07/21
--- OUTSIDE RECORDS SUMMARY | 2025-06-01 11:46 | XMS_ITS | Clinical Summary ---
Author Organization [facility] Address [address] [address] Phone Care Team Providers Care Recovery Agent Name Role Phone Santosh Rizo MD Primary Care Provider [phone] Kavya Cantu MBBS Unavailable [phone] Allergies Active Allergy Reactions Criticality Noted Date Comments Benzalkonium Unknown 01/28/2025 Eggshell Membrane 12/25/2018 No reaction documented. Fish Oil (Anchovy, Sardine) 12/08/19 25 Iodine Anaphylaxis High 12/12/2019 Penicillins 02/10/2021 Povidone-Iodine Unknown 01/14/2024 Shellfish Containing Products 12/25/2018 Acute allergic reaction Acute allergic reaction Shellfish Derived Anaphylaxis High 01/14/2024 Sulfa (Sulfonamide Antibiotics) 02/10/2021 Medications albuterol 90 mcg/actuation inhaler Inhale 2 puffs into the lungs as needed. 0 Active vitamin E acid succinate (VITAMIN E SUCCINATE) 268 mg (400 unit) Tab Take 400 Units by mouth daily. Active metoprolol tartrate (LOPRESSOR) 50 MG tablet Take 0.5 tablets (25 mg total) by mouth 2 (two) times a day. 45 tablet 3 4 Active famotidine (PEPCID) 40 MG tabletIndication s:Gastroesophage al reflux disease without esophagitis Take 1 tablet (40 mg total) by mouth daily. 90 tablet 3 4 Active cholecalciferol (VITAMIN D3) 5,000 unit capsule daily. 4 Active vitamins A,C,K-gcua-qbksy r (PRESERVISION AREDS) 4,296 mcg-226 mg-90 mg Cap Take 1 capsule by mouth 2 (two) times a day with meals. Active b complex vitamins tablet daily 4 Active EPINEPHrine 0.3 mg/0.3 mL auto-injector Inject 0.3 mL (0.3 mg total) into the muscle once as needed for anaphylaxis. 2 each 2 5 Active diclofenac sodium (VOLTAREN) 1 % GelIndications:S naomi stenosis of lumbosacral region Apply 4 g topically 4 (four) times a day. 50 g 5 Active fluticasone furoate-vilanter oL (BREO ELLIPTA) 200-25 mcg/dose inhaler Inhale 1 puff into the lungs daily. Active rosuvastatin (CRESTOR) 5 MG tabletIndication s:Elevated LDL cholesterol level Take 1 tablet by mouth once daily 90 tablet 5 Active metoprolol tartrate (LOPRESSOR) 25 MG tabletIndication s:Hypertension Take 1 tablet by mouth once daily 90 tablet 5 Active oxyBUTYnin (DITROPAN-XL) 5 MG 24 hr tablet Take 1 tablet (5 mg total) by mouth daily. 90 tablet 5 5 Active Active Problems Problem Noted Date Diagnosed Date Epistaxis 07/02/2024 Overview (07/02/2024): Recurrent issue since her childhood. Worsened with NSAID use. 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 Assessment & Plan (07/02/2024 11:33 AM EDT): Persistent symptoms, has not benefited from LALA with specialist, needs to stop using ibuprofen due to epistaxis. Assessment & Plan (03/03/2024 2:45 PM EDT): Getting LALA in [place] Assessment & Plan (11/15/2023 11:21 AM EST): Now benefiting from treatments from pain management at [facility]. First LALA September 2023, repeat planned for November MGUS (monoclonal gammopathy of unknown significa nce) 03/22/2023 Overview (03/22/2023): Small protein spike noted February 2023 after rising MCV on routine labs. Referred to hematology Assessment & Plan (04/21/2024 9:58 AM EDT): IMPRESSION: This is an 83-year-old woman with the following diagnosis Macrocytosis without anemia -mild, chronic and stable since at least September 2021 likely normal variant. She underwent extensive laboratory evaluation which came back unremarkable MGUS -IgG [place] Some pancreatic abnormality - MRCP was unremarkable - I would defer any further diagnostic intervention to her PCP in this regard DISCUSSION: I discussed overall impression, natural history disease, differential diagnosis and further management in this regard. Overall picture is consistent with the above-mentioned diagnosis. MGUS is an indolent premalignant plasma cell disorder which has 1 %/year risk of progression into plasma cell neoplasm. I recommended surveillance on 6 monthly basis. RECOMMENDATIONS: MGUS: Surveillance on 6 monthly basis with labs Macrocytosis: This is likely a normal variant -mild, chronic and stable and no further surveillance is necessary in this regard Some pancreatic abnormality - MRCP was unremarkable - I would defer any further diagnostic intervention or follow up to her PCP in this regard Return for follow-up in 6 months with labs Thank you very much for allowing to participate in this patient's care Gastroesophageal reflux disease without esophagi tis 11/23/2021 Overview (11/23/2021): Try Pepcid History of total replacement of both hip joints 07/28/2020 Chest pain 11/12/2019 Overview (10/02/2021): Followed with cardiology, had unremarkable stress echocardiogram, as well as TTE in the past. 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 Still doing PT History of hip joint replacement by other means 11/28/2018 RLS (restless legs syndrome) 11/28/2018 Overview (10/02/2021): On baclofen SVT (supraventricular tachycardia) 11/28/2018 Overview (10/02/2021): palptiations subsequent atypical chest pain. According to notes from Cheryl she had an unremarkable stress test and echocardiogram with cardiology. Timing not clear Followed with cardiology; on metoprolol Vitamin B 12 deficiency 11/28/2018 Overview (11/23/2021): Stable on replacement Primary osteoarthritis of right knee 04/25/2018 Overview (10/02/2021): Bilateral, Right hip Encounters Date Type Department Care Team Description 05/26/2025 Telephone [facility] [address] [place] [address] Santosh Rizo MD No Show (Same day cancel) 05/25/2025 Telephone [facility] [address] [place] [address] Santosh Rizo MD Triage (red-nurse call back, dizzy, light headed) 05/14/2025 3:15 PM EDT Telemedicine - audio only [address] [place] [address] Santosh Rizo MD Bladder instability (Primary Dx) 05/13/[address] [place] [address] Santosh Rizo MD Urine issues 04/22/[address] [place] [address] Santosh Rizo MD Medication Refill 03/20/[address] [place] [address] Santosh Rizo MD Medication Refill from Last 3 Months Immunizations Immunization Administration Dates Next Due COVID-19 (Pre-07/22) Gris Vaccine, [id number], P F 01/18/2022 COVID-19, Unspecified Formulation 02/24/2021 Influenza High-Dose Quadrivalent Preservative Fr ee IM 07/20/2020 Influenza High-Dose Trivalent Preservative Free IM 06/09/2019,06/13/2017 Influenza Trivalent Adjuvanted Preservative free IM 08/04/2024 Pneumococcal conjugate PCV20 03/18/2023 Pneumococcal conjugate PCV21 08/10/2024 RSV Vaccine (bivalent) 08/11/2024 Td (adult),2 Lf Tetanus Toxoid, PF, Adsorbed Social History Tobacco Use Types Packs/Day Years [...] on file Sexual Orientation Not on file Last Filed Vital Signs Vital Sign Reading Time Taken Comments Blood Pressure 116/56 01/28/2025 4:35 PM EDT Pulse 79 01/28/2025 4:35 PM EDT Temperature 36.4 C (97.5 F) 01/28/2025 4:35 PM EDT Respiratory Rate - - Oxygen Saturation 98% 01/28/2025 4:35 PM EDT Inhaled Oxygen Concentration - - Weight 64 kg (141 lb 3.2 oz) 01/28/2025 4:35 PM EDT Height 152.4 cm (5') 01/28/2025 4:35 PM EDT Body Mass Index 27.58 01/28/2025 4:35 PM EDT Plan of Treatment Health Maintenance Due Date Last Done Comments ZOSTER VACCINES (1 of 2) 1992 OSTEOPOROSIS SCREENING INITIAL (ONE-TIME) 2007 DEPRESSION SCREENING 03/18/2024 03/18/2023 COVID-19 VACCINE ( season) 2024 01/18/2022, 02/24/2021, 02/24/2021 INFLUENZA VACCINE (#1) 2025 , 07/20/2020, 06/09/2019, Additional history exists BLOOD PRESSURE 07/31/2025 01/28/2025 Adult Td,Tdap Booster 03/18/2033 03/18/2023 PNEUMOCOCCAL VACCINES (50+ years) Completed 08/10/2024, 03/18/2023 RSV VACCINE Completed 08/11/2024 HEPATITIS A VACCINES Aged Out No long er eligible based on patient's age to complete this topic HIB VACCINES Aged Out No longer eligi ble based on patient's age to complete this topic MENINGOCOCCAL VACCINES (ACWY) Aged Out No longer eligible based on patient's age to complete this topic MENINGOCOCCAL VACCINES (B) Aged Out N o longer eligible based on patient's age to complete this topic Medical Devices Not on file Insurance [employer] [place] [employer] HMO REPLACEMENT [facility] FULL MEDICARE PART A & [place] [id number] [facility] [employer] [place] [employer] HMO REPLACEMENT [facility] FULL MEDICARE PART A [place] [id number] [facility] [employer] [place] [employer] HMO REPLACEMENT [facility] NET FULL MEDICARE PART A & B Member Subscriber Plan / Payer (Ef fective 2007-Present) Name:Kavitha Sadler Member ID:[id number] Relation to Subscriber:Self Name:Kavitha Sadler Subscriber ID:[id number] Payer ID:[id number] Group ID:Not on file Type:Medicare Address: [facility] [address] [facility] [place] [address] [facility] [employer] [place] [employer] [facility]MO REPLACEMENT [facility] FULL MEDICARE PART A & [facility] [employer] [place] [facility] H[facility] FULL MEDICARE PART A & B [facility] [employer] [place] [employer] HMO REPLACEMENT [facility] FULL MEDICARE PART A & B Member Subscriber Plan / Payer (Ef fective 2007-Present) Name:Kavitha Sadler Member ID:[id number] Relation to Subscriber:Self Name:Kavitha Sadler Subscriber ID:[id number] Payer ID:[id number] Group ID:Not on file Type:Medicare Address: [facility] [address] [place] [address] [place] [id number] [facility] Care Teams Recovery Agent Relationship Specialty Start Date End Date Santosh Rizo MD [address] [place] [address], [address] [place] [address] [email or web address] PCP - General Internal Medicine 10/02/21 Kavya Cantu MBBS [address] [place] [address], [address] [place] [address] [email or web address] Medical Oncology 03/13/24 Additional Source Comments The information contained in this document represents components of the legal health record. It is not the complete legal health record.[facility]
== END 2025-06-01 12:04 | disposition home or self-care (01) ==
LOC: HO.HOS 10:15
PROVIDERS: PCP Internal Medicine; Visit Provider Orthopaedic Surgery
DX: M18.12 Unilateral primary osteoarthritis of first carpometacarpal joint, left hand (principal)
CPT/HCPCS: 20600; 99203

== ENCOUNTER → 2025-06-01 10:24 | Outpatient (BNV) | payer MEDICARE, MEDICAID, SELFPAY | PROVIDERS: Visit Provider Radiology Diagnostic Radiology | DX: M19.042 Primary osteoarthritis, left hand (principal) | CPT/HCPCS: 73130 ==